=== PATIENT | female | born 1950 | race African-American/Black ===

== ENCOUNTER 2017-09-17 15:18 | Outpatient (CLI) | payer MEDICARE | END 2017-09-17 15:19 | disposition home or self-care (01) | LOC: BICMAMMO 15:18 | PROVIDERS: ATTEND Family Medicine | DX: Z12.31 Encounter for screening mammogram for malignant neoplasm of breast (principal); R92.1 Mammographic calcification found on diagnostic imaging of breast | CPT/HCPCS: 77063; 77067 ==

== ENCOUNTER 2018-09-27 15:39 | Outpatient (CLI) | payer MEDICARE ==
--- NOTE | 2018-09-27 16:12 | MMO ---
Bilateral MAMMO Bilat Screen [facility]. CLINICAL HISTORY: Patient is 67 years old and is seen for screening. The patient has no family history of breast cancer. The patient has no personal history of cancer. VIEWS: The views performed were: bilateral craniocaudal with tomosynthesis and bilateral mediolateral oblique with tomosynthesis. FILMS COMPARED: The present examination has been compared to prior imaging studies performed at [facility] on 02/12/2016 and 09/17/2017, at [facility] on 01/10/2009 and 02/13/2010, and at [facility] on 08/29/2014. MAMMOGRAM FINDINGS: There are scattered fibroglandular densities. There are benign appearing calcifications seen in both breasts. There are also vascular calcifications. There are no suspicious masses, suspicious calcifications, or new areas of architectural distortion. IMPRESSION: THERE IS NO MAMMOGRAPHIC EVIDENCE OF MALIGNANCY. A ROUTINE FOLLOW-UP MAMMOGRAM IN 1 YEAR IS RECOMMENDED. THE RESULTS OF THIS EXAM WERE SENT TO THE PATIENT. ACR BI-RADS Category 2 - Benign finding MAMMOGRAPHY NOTE: 1. A negative mammogram report should not delay a biopsy if a dominant of clinically suspicious mass is present. 2. Approximately 10% to 15% of breast cancers are not detected by mammography. 3. Adenosis and dense breasts may obscure an underlying neoplasm.
== END 2018-09-27 15:40 | disposition home or self-care (01) ==
LOC: BICMAMMO 15:39
PROVIDERS: ATTEND Family Medicine
DX: Z12.31 Encounter for screening mammogram for malignant neoplasm of breast (principal)
CPT/HCPCS: 77063; 77067

== ENCOUNTER 2020-05-16 15:36 | Outpatient (CLI) | payer MEDICARE ==
--- NOTE | 2020-05-16 18:39 | RAD ---
CERVICAL SPINE: 05/16/20 Three views. HISTORY: Neck pain. Left arm pain. There are degenerative changes of the cervical spine. Loss of disc space with degenerative hypertroph ic changes are noted at the C5-6 and C6-7 levels. Anterior osteophytes at these levels and there is posterior spondylosis most prominent at C5-6. Mild facet hypertrophy. Slight anterolisthesis at C4-5. 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 POS: [facility]W
== END 2020-05-16 15:37 | disposition home or self-care (01) ==
LOC: BICRAD 15:36
PROVIDERS: ATTEND Family Medicine
DX: M79.602 Pain in left arm (principal); M47.812 Spondylosis without myelopathy or radiculopathy, cervical region
CPT/HCPCS: 72040

== ENCOUNTER 2021-10-25 14:14 | Outpatient (CLI) | payer MEDICARE, MEDICAID | END 2021-10-25 14:15 | disposition home or self-care (01) | LOC: BICMAMMO 14:14 | PROVIDERS: ATTEND Family Medicine | DX: Z12.31 Encounter for screening mammogram for malignant neoplasm of breast (principal) | CPT/HCPCS: 77063; 77067 ==

== ENCOUNTER 2022-04-24 15:09 | Outpatient (CLI) | payer MEDICARE, MEDICAID | END 2022-04-24 15:10 | disposition home or self-care (01) | LOC: RAD 15:09 | PROVIDERS: ATTEND Family Medicine | DX: M21.962 Unspecified acquired deformity of left lower leg (principal) ==

== ENCOUNTER 2024-06-07 06:47 | Emergency (ER) | payer MEDICARE ==
[2024-06-07] MEDS ORDERED: Ondansetron PF 4 MG/2 ML Vial ONE (07:03)
[2024-06-07] MEDS ORDERED: Famotidine/PF 20 mg/2ml Vial ONE ×2 (07:12→07:16)
[2024-06-07 07:22] LABS: Hematocrit 40.4 % (36.0-47.0); Hemoglobin 14.1 g/dL (12.0-16.0); Mean Corpuscular HGB CONC 34.9 g/dL (32.0-36.0); Mean Corpuscular Hemoglobin 28.4 pg (27.0-31.0); Mean Corpuscular Volume 81.5 fL (78.0-98.0); Mean Platelet Volume 12.7 fL (7.4-10.4); Platelet Count 154 10x3/uL (130-400); RBC Distribution Width 13.3 % (11.5-14.5); Red Blood Cell (RBC) Count 4.96 mill/uL (4.20-5.40)
[2024-06-07 07:33] LABS: ALT (SGPT) 14 U/L (8-55); AST (SGOT) 17 U/L (5-34); Albumin 4.5 g/dL (3.4-4.8); Alkaline Phosphatase 81 U/L (40-110); Anion Gap 18 mmol/L (10-20); BUN (Urea Nitrogen) 14 mg/dL (9.8-20.1); Bilirubin, Total 0.5 mg/dL (0.2-1.2); Calc. Creatinine Clearance 0 mL/min (70-130); Calcium 10.4 mg/dL (7.8-10.44); Carbon Dioxide 22 mmol/L (23-31); Chloride 101 mmol/L (98-107); Estimated GFR 88; Globulin 4.5 g/dL (2.4-3.5); Glucose 154 mg/dL (83-110); Lipase 24 U/L (8-78); Magnesium 1.8 mg/dL (1.6-2.6); Potassium 2.9 mmol/L (3.5-5.1); Sodium 138 mmol/L (136-145)
[2024-06-07] MEDS ORDERED: Potassium Chloride 20 MEQ TAB ONE (07:39)
[2024-06-07 08:12] LABS: Large Platelets 6.9 % (0-5); Lymphocytes 1 % (21-51); Monocytes 5 % (0-10); Neutrophil 94 % (42-75); Platelet Adequacy Comment Platelets Normal; RBC Morphology Within Normal Limits; Smudge Cells 0.9 %
[2024-06-07 08:13] LABS: #Basophils Less than 0.03 10x3/uL (0.0-0.2); #Eosinophils Less than 0.03 10x3/uL (0.0-0.7); %Basophils 0.2 % (0.0-1.0); %Lymphocytes 3.1 % (21.0-51.0); %Monocytes 5.7 % (0.0-10.0); %Neutrophils 90.8 % (42.0-75.0)
[2024-06-07 09:29] LABS: Bacteria/HPF None Seen HPF (None Seen); Bilirubin Negative (Negative); Blood, Urine 1+ (Negative); CAUTI Indications for Culture Pelvic or flank pain; Clarity Clear (Clear); Glucose, Urine (Dipstick) Normal (Negative); Ketone, Urine 20 mg/dL (Negative); Leukocyte Negative Leu/uL (Negative); Nitrite Negative (Negative); Protein, Urine (Dipstick) 50 mg/dL (Neg-Trace); RBC/HPF 0-3 HPF (0-3); Squamous Epithelial 0-3 HPF (0-3); Urobilinogen Normal mg/dL (Less than 2); WBC/HPF 0-3 HPF (0-3)
[2024-06-07 09:31] LABS: Specific Gravity, Urine 1.045 (1.002-1.036)
[2024-06-07 09:32] LABS: Urine Culture Reflex No No
[2024-06-07] MEDS ORDERED: Iopamidol-370 76% 500 ML MDV (1 ML CHARGE) ONE (10:19)
== END 2024-06-07 10:53 | disposition home or self-care (01) ==
LOC: ERS 06:47
DX: K80.20 Calculus of gallbladder without cholecystitis without obstruction (principal); N28.9 Disorder of kidney and ureter, unspecified; I70.1 Atherosclerosis of renal artery; E78.5 Hyperlipidemia, unspecified; I10 Essential (primary) hypertension; E11.9 Type 2 diabetes mellitus without complications
CPT/HCPCS: 74177; 76705; 80053; 81001; 83690; 83735; 85025; 87428; 93005; J2405; J3490; 96374; 96375; Q9967